=== PATIENT | male | born 1975 | race Caucasian/White ===

== ENCOUNTER 2024-11-30 21:18 | Emergency (ER) | payer OTHER ==
[~2024-11-30] VITALS: Ht 170.2 cm; Wt 74.0 kg
[2024-11-30 21:36] VITALS: O2SAT 100
[2024-11-30 22:04] VITALS: BP 131/64; PULSE 70; RESP 18; TEMP 37.3; O2SAT 100
[2024-11-30] MEDS ORDERED: CEPH500C2 MT (23:36)
[2024-11-30] MEDS ORDERED: IBUP-2028 MT (23:37)
== END 2024-12-01 03:10 | disposition left against medical advice (07) ==
LOC: ER 21:18
DX: M79.675 Pain in left toe(s) (principal); Z90.49 Acquired absence of other specified parts of digestive tract
CPT/HCPCS: 99283